=== PATIENT | male | born 1960 | race Caucasian/White ===

== ENCOUNTER 2019-09-28 12:00 | Emergency (ER) | payer OTHER ==
[~2019-09-28] VITALS: Ht 182.9 cm; Wt 74.8 kg
[2019-09-28 12:05] VITALS: BP 117/71
== END 2019-09-28 12:45 | disposition home or self-care (01) ==
LOC: ER 12:03
DX: S62.637A Displaced fracture of distal phalanx of left little finger, initial encounter for closed fracture (principal); S60.152A Contusion of left little finger with damage to nail, initial encounter; W23.1XXA Caught, crushed, jammed, or pinched between stationary objects, initial encounter; Y93.89 Activity, other specified; Y92.89 Other specified places as the place of occurrence of the external cause; Y99.8 Other external cause status
CPT/HCPCS: 73130-TC